=== PATIENT | male | born 1975 | race Caucasian/White ===

== ENCOUNTER 2016-11-03 10:05 | Emergency (ER) | payer OTHER ==
[~2016-11-03] VITALS: Ht 172.7 cm; Wt 79.5 kg
[2016-11-03 10:10] VITALS: BP 143/84; PULSE 71; RESP 18; O2SAT 99
--- NOTE | 2016-11-03 10:19 | ED.REPORT ---
HPI-Eye Problem Date of Service Nov 03, 2016 ED Provider: Jericho Mathew MD Pt is a healthy 41 year old male who presents to the ED with concerns for left eye irritation/FB sensation that began 5 days ago. He reports that the pain has been getting increasingly worse. He has been using Visine drops, and felt better yesterday. When he woke up this morning his eye was extremely irritated and he was unable to open his left eye 2/2 pain. He is extremely sensitive to light. He reports that it feels like there is a foreign body in his eye, but denies recalling getting anything in his eye. He does not wear contacts, and has never had anything like this happen in the past. He is a artillery or naval gunfire observer. He has noticed some crusty discharge from his eye in the morning. Nursing Notes Stated Complaint: EYE INJURY Chief Complaint: Eye Nursing Notes Reviewed: Yes Allergies: Coded Allergies: No Known Allergies (Unverified , 11/03/16) Scheduled Erythromycin Ophth Oint (Erythromycin Ophth Oint) 3.5 Gm Oint...g. 1 APPL OP QID Scheduled PRN Hydrocodone-Acetaminophen 5-325 mg (Hydrocodone-Acetaminophen 5-325 mg) 1 Each Tablet 1 TABLET PO Q4H PRN PRN For Pain General Time Seen by MD: 10:14 Chief Complaint Left eye affected Hx Obtained From: Patient Arrived By: Walk-in Sudden in Onset?: Yes Onset Occurred: 5 days ago Symptom Duration: Since onset Location: : Eye left Quality: Painful Severity: Current: Moderate Severity: Maximum: Moderate Similar Sx Previous: Yes Past Medical History Past Medical History Ulcerative collitis Past Surgical History None Ambulatory Status Independent Review of Systems Constitutional: Denies: Chills, Fever, Malaise, Weakness - generalized Eyes: Reports: Blurred left, Eye pain left Skin: Denies Rash Neurologic: Denies: Change LOC, Dizziness, Headache, Syncope Complete sys rev & neg: except as marked. Physical Exam Initial Vital Signs Vital Signs (First) Date Time Temp Pulse Resp B/P Pulse Ox O2 Delivery O2 Flow Rate FiO2 11/03/16 10:10 36.4 71 18 143/84 99 Room Air Initial VS: Reviewed General / Const: Well-developed, Well-nourished ENT: Mucous membranes moist, Conjunctiva normal, No scleral icterus Neck: Supple, Non-tender, Full range of motion Respiratory: Breath sounds normal, Clear to auscultation, No respiratory distress Cardiovascular: Regular rate & rhythm, Heart sounds normal, Intact distal pulses Abdomen / GI: Soft, Non-tender, No guarding, No rebound, No distention Skin: Warm, Dry, No cyanosis Neurologic: Alert, Oriented, Nonfocal Head / Eyes: PERRL Conjunctiva / Sclera: Positive: Injected left Periorbital: Negative: Proptosis L, Proptosis R No obvious foreign body present No swelling of the eye No limbic sparing of the conjunctival injection Relief of pain with tetracaine No cell and flare No ulcerations or abrasions on fluorescence exam Intra-occular pressure in the left eye is 12 Re-Eval/Medical Decision Med Decision/Clinical Course Pt is a healthy 41 year old male who presents to the ED with concerns for left eye irritation/FB sensation that began 5 days ago. He reports that the pain has been getting increasingly worse. He has been using Visine drops, and felt better yesterday. When he woke up this morning his eye was extremely irritated and he was unable to open his left eye 2/2 pain. He is extremely sensitive to light. He reports that it feels like there is a foreign body in his eye, but denies recalling getting anything in his eye. He does not wear contacts, and has never had anything like this happen in the past. He is a artillery or naval gunfire observer. He has noticed some crusty discharge from his eye in the morning. Visual acuity: L: can't open 2/2 pain R: 20/20 Emergency department the patient is afebrile stable vital signs and an apparent distress. Examination of his eye with fluorescein/slit-lamp reveals no evidence of anterior uveitis. Intraocular pressure is normal and I suspicion for acute angle-closure glaucoma is low. No evidence of foreign body, corneal abrasion or corneal ulcer. Visual acuity is not initially able to be measured secondary to pain however after application of tetracaine to his eye he reports improvement in his pain is able to open his eye with grossly normal visual acuity. I do not see obvious purulent drainage however I suspect that he is experiencing conjunctivitis. He will be treated with a course of erythromycin ointment. The patient lives in [place] and will follow up with ophthalmology there when he returns tomorrow. At this time, I feel that is appropriate for discharge. Prior to discharge follow-up and return precautions were reviewed in detail with the patient who verbalized understanding and agreement with the plan. The patient was discharged in stable condition. Source of Hx: Old records Re-Evaluation/Progress : Re-Evaluation/Progress Note: Pt is rechecked and informed of his diagnosis and the plan to discharge him at this time. He understands and agrees, all questions are addressed. Counseled Regarding: Diagnosis, Need for follow-up, When/why to return to ED Discharge & Departure Primary Impression: Left eye pain Additional Impressions: Redness of left eye Conjunctivitis of left eye Conjunctivitis type: acute Acute conjunctivitis type: unspecified Qualified Code: H10.32 - Unspecified acute conjunctivitis, left eye Sensitivity to light Disposition: Home Discharge Condition All VS Reviewed: Yes Condition: Stable Additional Instructions: Thank you for seeking care at the emergency room. It is difficult for us to make definitive diagnoses in the ED but we believe that you are experiencing bacterial conjunctivitis Our primary goal today in the ED was to evaluate you for any life-threatening conditions. Your evaluation was reassuring. You will be discharged with a prescription for an eye cream and a pain medication . You should follow-up with an eye doctor in [place] tomorrow. You should return to the ED immediately if you develop visual changes, increasing pain, fevers, vomiting, cough, shortness of breath, chest pain, lightheadedness, weakness or any other concerning signs or symptoms. Thank you for letting us partake in your care today. Gauri Attestation Portions of this note were transcribed by Susanne Berg. I, Dr. Mathew personally performed the history, physical exam and medical decision-making; I reviewed and confirmed the accuracy of the information in the transcribed note. Signed by: Gauri Del Rosario, 11/03/2016 [Time]. Jericho Mathew MD Nov 03, 2016 10:19 JÚNIOR BERG Nov 03, 2016 10:29
[2016-11-03] MEDS ORDERED: Fluorescein 0.6 mg Ophthalmic Strip ONE (10:22)
[2016-11-03] MEDS ORDERED: 0.9% Sodium Chloride Inhalation Solution ONE (10:22)
[2016-11-03] MEDS ORDERED: Tetracaine 0.5% 4 mL Ophthalmic Solution ONE (10:22)
[2016-11-03] MEDS ORDERED: Tetracaine 0.5% 4 mL Ophthalmic Solution LEFT_EYE ONE (10:25)
[2016-11-03] MEDS ORDERED: Fluorescein 0.6 mg Ophthalmic Strip LEFT_EYE ONE (10:25)
[2016-11-03] MEDS ORDERED: ERYT1OIN7 OP (10:43)
[2016-11-03] MEDS ORDERED: HYDR-4003 PO (10:43)
== END 2016-11-03 10:58 | disposition home or self-care (01) ==
LOC: SED 10:05
DX: H10.32 Unspecified acute conjunctivitis, left eye (principal); H53.142 Visual discomfort, left eye